=== PATIENT | male | born 1975 | race Asian ===

== ENCOUNTER 2022-02-19 01:33 | Emergency (ER) | payer MEDICAID | END 2022-02-19 02:01 | disposition home or self-care (01) | LOC: DL.ED 01:33 | DX: F11.90 Opioid use, unspecified, uncomplicated (principal); Z76.0 Encounter for issue of repeat prescription | CPT/HCPCS: 99281; 99283 ==

== ENCOUNTER 2022-03-05 22:11 | Emergency (ER) | payer MEDICAID ==
[2022-03-05] MEDS ORDERED: Propofol 200 MG/20 ML SDV IV ONE (22:12)
[2022-03-05 22:59] LABS: AMPHETAMINES,URINE NEGATIVE (NEGATIVE); BARBITURATES,URINE NEGATIVE (NEGATIVE); BENZODIAZEPINE,URINE NEGATIVE (NEGATIVE); MDMA (ECSTASY), URINE NEGATIVE (NEGATIVE); METHADONE,URINE NEGATIVE (NEGATIVE); METHAMPHETAMINES,URINE NEGATIVE (NEGATIVE); OPIATES,URINE NEGATIVE (NEGATIVE); OXYCODONE,URINE NEGATIVE (NEGATIVE); PHENCYCLIDINE,URINE NEGATIVE (NEGATIVE); TCA,URINE NEGATIVE (NEGATIVE)
[2022-03-05 23:14] LABS: ANION GAP 13.2 mEq/L (7-13); PTT,PARTIAL THROMBOPLSTIN TIME 21.9 SEC (22.0-34.0)
[2022-03-05 23:32] LABS: CORONAVIRUS COVID-19 NAA NEGATIVE (NEGATIVE)
== END 2022-03-06 01:30 | disposition home or self-care (01) ==
LOC: DL.ED 22:11
DX: S82.841A Displaced bimalleolar fracture of right lower leg, initial encounter for closed fracture (principal); F10.920 Alcohol use, unspecified with intoxication, uncomplicated; Y90.8 Blood alcohol level of 240 mg/100 ml or more; Z20.822 Contact with and (suspected) exposure to COVID-19; W00.0XXA Fall on same level due to ice and snow, initial encounter
CPT/HCPCS: 01462; 0240U; 27810; 36415; 73610; 80053; 80305; 80307; 83735; 85025; 85610; 85730; 93005; 99284; J2704; 27842; 93010; 99283